=== PATIENT | female | born 1955 | race African-American/Black ===

== ENCOUNTER 2018-07-06 11:49 | Emergency (ER) | payer OTHER ==
[2018-07-06] MEDS ORDERED: Ketorolac Tromethamine 30 MG/ML VIAL ONE (12:15)
[2018-07-06 12:31] LABS: Bilirubin Negative (Negative); Blood, Urine Trace (Negative); Clarity Clear (Clear); Glucose, Urine (Dipstick) Negative (Negative); Leukocyte Negative (Negative); Nitrite Negative (Negative); Protein, Urine (Dipstick) Negative (Neg-Trace); Urobilinogen 0.2 mg/dL (0.2-1.0); pH, Urine 5.5 (5.0-9.0)
[2018-07-06 12:40] LABS: Specific Gravity, Urine 1.022 (1.002-1.036)
[2018-07-06 12:41] LABS: Bacteria/HPF 2+ HPF (None Seen); RBC/HPF 0-3 HPF (0-3); Squamous Epithelial 0-3 HPF (0-3); WBC/HPF 0-3 HPF (0-3)
--- NOTE | 2018-07-06 13:10 | CT ---
ABDOMEN CT WITHOUT CONTRAST PELVIC CT WITHOUT CONTRAST: History: Three days of right flank pain. Comparison: None. Technique: An abdomen and pelvic CT are performed without contrast. Coronal reformatted images are juarez bmitted for interpretation. FINDINGS: ABDOMEN CT: Small calcified granuloma in the right lung base. Normal heart size. No significant pericardial fluid . The visualized aorta has a normal caliber. There is some atherosclerosis. No periaortic fat strandi ng. Gallbladder is surgically absent. Limited evaluation of the solid organs due to lack of IV contrast. Grossly the liver, spleen, pancrea s and adrenal glands are unremarkable. No gastrohepatic, retrocrural or periportal lymphadenopathy. No mesenteric mass, lymphadenopathy or free fluid or free air. Limited evaluation of the alimentary canal by lack of oral contrast. Gastric mucosa and duodenum and multiple normal caliber small bowel loops are noted. Ileocecal junction is normal. Normal caliber ti endix. Scattered fecal material in a nondistended, nondilated colon. Bilaterally, no hydronephrosis, nephrolithiasis or perinephric fat stranding. Calcifications in the r ight renal pelvis are presumed to be vascular. Bilateral ureters have a normal caliber. No hydrourete r, fat stranding, or ureterolithiasis. PELVIC CT: Multiple calcified uterine leiomyomas are noted. Evaluation is incomplete. Adnexal structures are unr emarkable. No pelvic mass, lymphadenopathy, free air or significant free fluid. Urinary bladder is un remarkable. No lytic or blastic lesions in the osseous structures. IMPRESSION: 1. Uterine leiomyoma, incompletely evaluated. In a patient of this age, better interrogation of the u terine structures is recommended. Consider nonemergent pelvic MRI and [employer] consultation. 2. Normal caliber appendix. 3. No evidence of obstructed uropathy. POS: [facility]
== END 2018-07-06 13:18 | disposition home or self-care (01) ==
LOC: NAV ERS 11:49
DX: M54.6 Pain in thoracic spine (principal); I10 Essential (primary) hypertension; D25.9 Leiomyoma of uterus, unspecified; N39.0 Urinary tract infection, site not specified; E78.5 Hyperlipidemia, unspecified; F17.210 Nicotine dependence, cigarettes, uncomplicated; Z79.899 Other long term (current) drug therapy
CPT/HCPCS: 74176; 81003; 81015; 96372; J1885

== ENCOUNTER 2019-05-15 05:08 | Emergency (ER) | payer MEDICARE, OTHER ==
[2019-05-15] MEDS ORDERED: Lidocaine Viscous Sol 2% 15 ml UD Cup ONE (05:37)
[2019-05-15] MEDS ORDERED: Mag-Al Plus 1200 MG/1200 MG/120 MG/30 ML UDCUP ONE (05:37)
[2019-05-15] MEDS ORDERED: Aspirin Chewable 81 MG TAB ONE (05:45)
[2019-05-15 05:54] LABS: #Basophils 0.1 thou/uL (0.0-0.2); #Eosinphils 0.4 thou/uL (0.0-0.7); #Lymphocytes 5.4 thou/uL (1.20-3.40); #Monocytes 0.6 thou/uL (0.11-0.59); #Neutrophils 4.6 thou/uL (1.40-6.50); %Eosinophils 3.9 % (0.0-10.0); %Lymphocytes 48.3 % (21.0-51.0); %Monocytes 5.5 % (0.0-10.0); %Neutrophils 41.3 % (42.0-75.0); Hemoglobin 12.9 g/dL (12.0-16.0); Mean Corpuscular HGB CONC 31.3 g/dL (32.0-36.0); Mean Corpuscular Hemoglobin 29.3 pg (27.0-31.0); Mean Corpuscular Volume 93.4 fL (78.0-98.0); Mean Platelet Volume 9.3 fL (7.4-10.4); Platelet Count 233 thou/uL (130-400); RBC Distribution Width 13.2 % (11.5-14.5); Red Blood Cell (RBC) Count 4.41 mill/uL (4.20-5.40); White Blood Cell (WBC) Count 11.1 thou/uL (4.8-10.8)
[2019-05-15 06:06] LABS: PTT 25.7 SEC (22.9-36.1); Prothrombin Time 13.3 SEC (12.0-14.7)
[2019-05-15] MEDS ORDERED: Heparin 5,000 UNITS/ML VIAL ONE (06:08)
[2019-05-15] MEDS ORDERED: Heparin 1,000 UNITS/ML VIAL ONE (06:08)
[2019-05-15] MEDS ORDERED: Heparin 25,000 units/D5W 500 ML ONE (06:11)
[2019-05-15 06:16] LABS: ALT (SGPT) 24 U/L (8-55); AST (SGOT) 17 U/L (5-34); Albumin 4.1 g/dL (3.4-4.8); Alkaline Phosphatase 119 U/L (40-150); Anion Gap 18 mmol/L (10-20); BUN (Urea Nitrogen) 20 mg/dL (9.8-20.1); Bilirubin, Total 0.3 mg/dL (0.2-1.2); Calc. Creatinine Clearance 0 mL/min (70-130); Calcium 9.6 mg/dL (7.8-10.44); Carbon Dioxide 23 mmol/L (23-31); Chloride 103 mmol/L (98-107); Estimated GFR-MDRD 63; Globulin 3.1 g/dL (2.4-3.5); Glucose 172 mg/dL (80-115); Lipase 44 U/L (8-78); Potassium 3.4 mmol/L (3.5-5.1); Protein, Total 7.2 g/dL (6.0-8.3); Sodium 141 mmol/L (136-145)
[2019-05-15] MEDS ORDERED: Lidocaine 1% (PF) 30 ML VIAL ONE (06:27)
[2019-05-15] MEDS ORDERED: Heparin 10,000 UNITS/1 ML VIAL ONE (06:29)
[2019-05-15 06:33] LABS: CKMB 1.2 ng/mL (0-6.6)
--- NOTE | 2019-05-15 10:06 | RAD ---
PORTABLE CHEST: HISTORY: Sore throat, abnormal EKG. FINDINGS: Heart size is borderline. No signs of overt failure. There is some minimal interstitial change in t he base suggesting some subsegmental atelectasis. IMPRESSION: Borderline heart size some linear interstitial change in the bases suggestive of atelectasis. POS: [facility]
== END 2019-05-15 06:26 | disposition short-term general hospital (02) ==
LOC: NAV ERS 05:08
DX: I21.3 ST elevation (STEMI) myocardial infarction of unspecified site (principal); E78.5 Hyperlipidemia, unspecified; I10 Essential (primary) hypertension; F17.210 Nicotine dependence, cigarettes, uncomplicated; Z79.899 Other long term (current) drug therapy
CPT/HCPCS: 36415; 71045; 80053; 82553; 83690; 84484; 85025; 85610; 85730; 93005; 94760; 96365; 96376; J1644; J2001

== ENCOUNTER 2019-09-02 08:53 | Outpatient (CLI) | payer MEDICARE, OTHER ==
[2019-09-02 09:41] LABS: ALT (SGPT) 30 U/L (8-55); AST (SGOT) 17 U/L (5-34); Albumin 4.4 g/dL (3.4-4.8); Alkaline Phosphatase 136 U/L (40-110); Anion Gap 15 mmol/L (10-20); BUN (Urea Nitrogen) 13 mg/dL (9.8-20.1); Bilirubin, Direct 0.2 mg/dL (0.1-0.3); Bilirubin, Total 0.5 mg/dL (0.2-1.2); Calc. Creatinine Clearance 0 mL/min (70-130); Calcium 9.9 mg/dL (7.8-10.44); Carbon Dioxide 26 mmol/L (23-31); Chloride 106 mmol/L (98-107); Estimated GFR-MDRD 86; Globulin 2.9 g/dL (2.4-3.5); Glucose 97 mg/dL (80-115); Potassium 3.8 mmol/L (3.5-5.1); Protein, Total 7.3 g/dL (6.0-8.3); Sodium 143 mmol/L (136-145)
[2019-09-03 14:49] LABS: Cardiac Risk 2.5 (Less than 4.5)
== END 2019-09-02 08:54 | disposition home or self-care (01) ==
LOC: NAV LAB 08:53
PROVIDERS: ATTEND Internal Medicine Cardiovascular Disease
DX: E78.00 Pure hypercholesterolemia, unspecified (principal)
CPT/HCPCS: 36415; 80053; 80061; 82248

== ENCOUNTER 2023-11-10 13:41 | Emergency (ER) | payer OTHER ==
[2023-11-10] MEDS ORDERED: Ketorolac Tromethamine 30 MG (1 mL) VIAL ONE (14:08)
[2023-11-10] MEDS ORDERED: Ondansetron ODT 4 MG TAB ONE (14:08)
[2023-11-10 14:22] LABS: #Lymphocytes 1.5 thou/uL (1.20-3.40); #Monocytes 0.2 thou/uL (0.11-0.59); #Neutrophils 4.4 thou/uL (1.40-6.50); %Basophils 0.7 % (0.0-1.0); %Lymphocytes 24.7 % (21.0-51.0); %Monocytes 3.9 % (0.0-10.0); %Neutrophils 70.6 % (42.0-75.0); Hematocrit 44.7 % (36.0-47.0); Hemoglobin 14.6 g/dL (12.0-16.0); Mean Corpuscular HGB CONC 32.6 g/dL (32.0-36.0); Mean Corpuscular Hemoglobin 30.8 pg (27.0-31.0); Mean Corpuscular Volume 94.5 fl (78.0-98.0); Platelet Count 193 10x3/uL (130-400); Red Blood Cell (RBC) Count 4.73 mill/uL (4.20-5.40); White Blood Cell (WBC) Count 6.2 10x3/uL (4.8-10.8)
[2023-11-10 14:38] LABS: ALT (SGPT) 30 U/L (8-55); AST (SGOT) 21 U/L (5-34); Albumin 4.5 g/dL (3.4-4.8); Alkaline Phosphatase 117 U/L (40-110); Anion Gap 14 mmol/L (10-20); BUN (Urea Nitrogen) 13 mg/dL (9.8-20.1); Bilirubin, Total 0.8 mg/dL (0.2-1.2); Calc. Creatinine Clearance 0 mL/min (70-130); Calcium 9.6 mg/dL (7.8-10.44); Carbon Dioxide 22 mmol/L (23-31); Chloride 101 mmol/L (98-107); Estimated GFR 87; Globulin 3.2 g/dL (2.4-3.5); Glucose 151 mg/dL (80-115); Lipase 17 U/L (8-78); Potassium 3.6 mmol/L (3.5-5.1); Protein, Total 7.7 g/dL (5.8-8.1); Sodium 133 mmol/L (136-145)
[2023-11-10 15:12] LABS: Bilirubin Negative (Negative); Blood, Urine Large (Negative); Clarity Slightly Cloudy (Clear); Glucose, Urine (Dipstick) Negative (Negative); Ketone, Urine Negative (Negative); Leukocyte Small (Negative); Nitrite Negative (Negative); Protein, Urine (Dipstick) > or equal to 300 mg/dL (Neg-Trace)
[2023-11-10 15:20] LABS: Bacteria/HPF 1+ HPF (None Seen); CAUTI Indications for Culture Pelvic or flank pain; Specific Gravity, Urine 1.028 (1.002-1.036)
[2023-11-10 15:22] LABS: Urine Culture Reflex Yes Yes
[2023-11-10] MEDS ORDERED: Cephalexin 250 MG CAP ONE (16:24)
== END 2023-11-10 16:45 | disposition home or self-care (01) ==
LOC: NAV ERS 13:41
DX: N39.0 Urinary tract infection, site not specified (principal); F17.210 Nicotine dependence, cigarettes, uncomplicated; I10 Essential (primary) hypertension; E78.00 Pure hypercholesterolemia, unspecified; Z79.899 Other long term (current) drug therapy
CPT/HCPCS: 36415; 74176; 80053; 81001; 83690; 85025; 87086; 96372; J1885; Q0162

== ENCOUNTER 2024-03-09 09:17 | Emergency (ER) | payer OTHER ==
[2024-03-09 09:41] LABS: Bilirubin Negative (Negative); Blood, Urine Moderate (Negative); Clarity Clear (Clear); Glucose, Urine (Dipstick) Negative (Negative); Ketone, Urine Negative (Negative); Leukocyte Negative (Negative); Nitrite Negative (Negative); Protein, Urine (Dipstick) 100 mg/dL (Neg-Trace); Urobilinogen 0.2 mg/dL (Less than 2); pH, Urine 5.5 (5.0-9.0)
[2024-03-09 09:44] LABS: Specific Gravity, Urine 1.023 (1.002-1.036)
[2024-03-09 09:49] LABS: CAUTI Indications for Culture Pelvic or flank pain; Squamous Epithelial 0-3 HPF (0-3)
[2024-03-09 09:50] LABS: Bacteria/HPF Rare-Few HPF (None Seen); Yeast-Budding Rare HPF (None Seen)
[2024-03-09 09:51] LABS: Urine Culture Reflex No No
[2024-03-09] MEDS ORDERED: Ondansetron ODT 4 MG TAB ONE (10:14)
[2024-03-09] MEDS ORDERED: Cephalexin 250 MG CAP ONE (11:27)
== END 2024-03-09 11:35 | disposition home or self-care (01) ==
LOC: NAV ERS 09:17
DX: R10.9 Unspecified abdominal pain (principal); I10 Essential (primary) hypertension; E78.00 Pure hypercholesterolemia, unspecified; F17.210 Nicotine dependence, cigarettes, uncomplicated; Z79.899 Other long term (current) drug therapy; Z79.82 Long term (current) use of aspirin
CPT/HCPCS: 74176; 81001; 87086; Q0162

== ENCOUNTER 2024-09-21 01:06 | Emergency (ER) | payer OTHER ==
[2024-09-21] MEDS ORDERED: LevoFLOXacin 750 MG TAB ONE (01:44)
[2024-09-21 01:52] LABS: Bilirubin Small (Negative); Blood, Urine Large (Negative); Clarity Cloudy (Clear); Glucose, Urine (Dipstick) 100 mg/dL (Negative); Ketone, Urine Negative (Negative); Leukocyte Large (Negative); Nitrite Positive (Negative); Protein, Urine (Dipstick) > or equal to 300 mg/dL (Neg-Trace); Urobilinogen 0.2 mg/dL (Less than 2); pH, Urine 5.5 (5.0-9.0)
[2024-09-21 01:58] LABS: Specific Gravity, Urine 1.005 (1.002-1.036)
[2024-09-21 01:59] LABS: RBC/HPF 21-50 HPF (0-3)
[2024-09-21 02:00] LABS: Bacteria/HPF Rare-Few HPF (None Seen); CAUTI Indications for Culture Dysuria,urgency,freq; WBC/HPF Greater than 50 HPF (0-3)
[2024-09-21 02:04] LABS: Urine Culture Reflex Yes Yes
== END 2024-09-21 01:58 | disposition home or self-care (01) ==
LOC: NAV ERS 01:06
DX: T83.091A Other mechanical complication of indwelling urethral catheter, initial encounter (principal); I10 Essential (primary) hypertension; F17.210 Nicotine dependence, cigarettes, uncomplicated
CPT/HCPCS: 51798; 81001; 87086; 99283

== ENCOUNTER 2024-10-06 08:45 | Emergency (ER) | payer OTHER | END 2024-10-06 09:51 | disposition home or self-care (01) | LOC: NAV ERS 08:45 | DX: T83.091A Other mechanical complication of indwelling urethral catheter, initial encounter (principal); I10 Essential (primary) hypertension; F17.210 Nicotine dependence, cigarettes, uncomplicated | CPT/HCPCS: 99283 ==

== ENCOUNTER 2024-10-06 20:05 | Emergency (ER) | payer OTHER | END 2024-10-06 21:08 | disposition home or self-care (01) | LOC: NAV ERS 20:05 | DX: T83.091A Other mechanical complication of indwelling urethral catheter, initial encounter (principal); I10 Essential (primary) hypertension; F17.210 Nicotine dependence, cigarettes, uncomplicated | CPT/HCPCS: 99283 ==

== ENCOUNTER 2024-10-07 08:19 | Emergency (ER) | payer OTHER ==
[2024-10-07] MEDS ORDERED: Lorazepam 0.5 MG TAB ONE (09:48)
[2024-10-07 10:22] LABS: Bilirubin Negative (Negative); Blood, Urine Large (Negative); Clarity Slightly Cloudy (Clear); Glucose, Urine (Dipstick) Negative (Negative); Ketone, Urine Negative (Negative); Leukocyte Large (Negative); Nitrite Negative (Negative); Protein, Urine (Dipstick) 100 mg/dL (Neg-Trace); Urobilinogen 0.2 mg/dL (Less than 2); pH, Urine 5.5 (5.0-9.0)
[2024-10-07 10:23] LABS: Bacteria/HPF Rare-Few HPF (None Seen); CAUTI Indications for Culture Dysuria,urgency,freq; Urine Culture Reflex Yes Yes; WBC/HPF 21-50 HPF (0-3)
[2024-10-07] MEDS ORDERED: Doxycycline 100 MG CAP ONE (10:56)
== END 2024-10-07 11:03 | disposition home or self-care (01) ==
LOC: NAV ERS 08:19
DX: T83.091A Other mechanical complication of indwelling urethral catheter, initial encounter (principal); N39.0 Urinary tract infection, site not specified; I10 Essential (primary) hypertension; F17.210 Nicotine dependence, cigarettes, uncomplicated
CPT/HCPCS: 81001; 87086; 99283

== ENCOUNTER 2024-11-01 08:58 | Emergency (ER) | payer OTHER | END 2024-11-01 10:55 | disposition home or self-care (01) | LOC: NAV ERS 08:58 | DX: T83.031A Leakage of indwelling urethral catheter, initial encounter (principal); I10 Essential (primary) hypertension; F17.210 Nicotine dependence, cigarettes, uncomplicated | CPT/HCPCS: 99283 ==

== ENCOUNTER 2024-11-03 10:24 | Emergency (ER) | payer OTHER | END 2024-11-03 11:00 | disposition home or self-care (01) | LOC: NAV ERS 10:24 | DX: T83.091A Other mechanical complication of indwelling urethral catheter, initial encounter (principal); I10 Essential (primary) hypertension; F17.210 Nicotine dependence, cigarettes, uncomplicated | CPT/HCPCS: 99283 ==

== ENCOUNTER 2024-11-05 21:40 | Emergency (ER) | payer OTHER | END 2024-11-05 22:19 | disposition home or self-care (01) | LOC: NAV ERS 21:40 | DX: T83.091A Other mechanical complication of indwelling urethral catheter, initial encounter (principal); E78.5 Hyperlipidemia, unspecified; E78.1 Pure hyperglyceridemia; C67.9 Malignant neoplasm of bladder, unspecified; I10 Essential (primary) hypertension; F17.210 Nicotine dependence, cigarettes, uncomplicated | CPT/HCPCS: 99283 ==

== ENCOUNTER 2024-11-08 18:48 | Emergency (ER) | payer OTHER | END 2024-11-08 20:30 | disposition home or self-care (01) | LOC: NAV ERS 18:48 | DX: T83.091A Other mechanical complication of indwelling urethral catheter, initial encounter (principal); I10 Essential (primary) hypertension; F17.210 Nicotine dependence, cigarettes, uncomplicated | CPT/HCPCS: 99283 ==